=== PATIENT | male | born 1950 | race Two or more races ===

== ENCOUNTER → 2018-02-16 16:40 | Outpatient (CLI) | payer MEDICARE, BC, SELFPAY | PROVIDERS: Visit Provider Nurse Practitioner Adult Health | DX: N40.0 Benign prostatic hyperplasia without lower urinary tract symptoms (principal); Z12.5 Encounter for screening for malignant neoplasm of prostate | CPT/HCPCS: 36415; 84153; G0103 ==

== ENCOUNTER → 2019-04-01 16:33 | Outpatient (CLI) | payer MEDICARE, BC, SELFPAY | PROVIDERS: Referring Provider Urology; Visit Provider Urology | DX: Z12.5 Encounter for screening for malignant neoplasm of prostate (principal) | CPT/HCPCS: 36415; 84153; G0103 ==

== ENCOUNTER → 2022-02-12 | Outpatient (CLI) | payer MEDICARE, BC, SELFPAY ==
[2022-02-12 17:44] LABS: PSA,Total - Annual Screen 4.21 ng/mL (0.00-4.00)
== END | disposition home or self-care (01) ==
LOC: LAB 16:57
PROVIDERS: Referring Provider Urology; Visit Provider Urology
DX: Z12.5 Encounter for screening for malignant neoplasm of prostate (principal)
CPT/HCPCS: 36415; 84153; G0103

== ENCOUNTER → 2025-04-12 | Outpatient (CLI) | payer MEDICARE, BC, SELFPAY ==
[2025-04-13 15:08] LABS: PSA, Free 0.36 ng/mL; PSA, Free % 8.9 % (.); PSA, Total Ultrasensitive 4.060 ng/mL (0.000-4.000)
== END | disposition home or self-care (01) ==
LOC: LAB 11:34
PROVIDERS: Referring Provider Urology; Visit Provider Urology
DX: R97.20 Elevated prostate specific antigen [PSA] (principal)
CPT/HCPCS: 36415; 84153; 84154

== ENCOUNTER → 2025-04-25 | Outpatient (CLI) | payer MEDICARE, BC, SELFPAY ==
--- NOTE | 2025-04-25 10:53 | MRI_ITS ---
EXAM: PELVIS W/WO CONTRAST 04/25/2025 CLINICAL HISTORY: ELEVATED PSA. Prior laser surgery on the prostate with no prior history of cancer. TECHNIQUE: Procedure Code: [id number] Modality: MR Procedure: PELVIS W/WO CONTRAST Multiplanar and multisequence images were obtained intravenous gadolinium contrast. CONTRAST: Clariscan VOLUME: 20 mL FINDINGS: PSA: 4 4.06 Prostate size: 2.5 x 3.1 x 4.2 cm, estimated volume 17.59 mL. Per the above provided PSA, PSA density is 0.227 ng/mL. Transition zone: PI-RADS 2 findings. *T2 score: 2; mostly encapsulated nodule or a homogeneous circumscribed nodule without encapsulation, or a homogeneous mildly hypointense area between nodules. *DWI score: 1; no abnormality on ADC or high b-value DWI. *DCE: Negative. *Overall PI-RADS: PI-RADS 2. *Extracapsular extension:No gross extracapsular extension. Peripheral Zone: *Lesion 1: Within the left anterior and posterior peripheral zones in the midportion of the gland, there is a 18 x 7 x 17 mm T2 hypoechoic lesion with early enhancement and intermediate high signal on DWI. This demonstrates a broad contact with the capsule without clear evidence of extraprostatic involvement. (Axial T2 image 15, ADC map image 13). *T2 score: 5; circumscribed, homogeneous, moderate hypointensity, and >1.5 cm in greatest dimension or definite extraprostatic extension/invasive behavior. *DWI score: 4; focal, marked hypointensity on ADC and marked hyperintensity on high b-value DWI; <1.5 cm. *DCE: Positive. *Overall PI-RADS: PI-RADS 5. *Extracapsular extension:No gross extracapsular extension. Neurovascular bundles: Unremarkable. Seminal vesicles: Unremarkable. Bladder: Indeterminate heterogeneous well-circumscribed T2 hypointense, enhancing nodule in the bladder measuring 9.5 x 7.9 x 7.5 cm. Given that there are postsurgical changes in the superior prostate, this could reflect residual hyperplastic nodule from BPH. The remainder of the bladder is normal.. Lymph nodes: Unremarkable. Bones: No destructive or frankly suspicious bony lesions identified on nondedicated evaluation. Other: None. MRI/Pelvis W/WO Contrast IMPRESSION: 18 mm lesion within the anterior and posterior left peripheral zone midgland wi th broad capsular contact but no extracapsular invasion or involvement of the neurovascular bundle. PI-RADS 5. Small 9.5 mm nodule in the bladder following signal characteristics of a BPH no dule and likely reflective of residual tissue with postsurgical changes seen in the superior prostate gland Reading Location: [id number]
== END | disposition home or self-care (01) ==
PROVIDERS: PCP Pediatrics; Referring Provider Urology; Visit Provider Urology
DX: R97.20 Elevated prostate specific antigen [PSA] (principal)
CPT/HCPCS: 72197; A9575; A4216

== ENCOUNTER → 2025-05-31 | Outpatient (CLI) | payer MEDICARE, BC, SELFPAY ==
--- NOTE | 2025-05-31 13:58 | EKG12_ITS ---
Test Reason : PREOP Blood Pressure : */* mmHG Vent. Rate : 54 BPM Atrial Rate : 54 BPM P-R Int : 164 ms QRS Dur : 96 ms QT Int : 444 ms P-R-T Axes : 43 74 57 degrees QTcB Int : 421 ms Sinus bradycardia Otherwise normal ECG Confirmed by JOSE GUTHRIE, KRISTAL ([id number]), assistant editor KRISTOPHER DAN ([id number]) on 06/01/2025 9:02:59 AM Referred By: Bismark Anton Confirmed By: KRISTAL GARCIA MD
[2025-05-31 15:02] LABS: Hematocrit 40.5 % (40-54); Hemoglobin 14.3 g/dL (13.0-16.5); Mean Corp Hgb Conc 35.3 g/dL (32-36); Mean Corpuscular Volume 93.1 fL (80-94); Mean Platelet Vol. 9.8 fl (6.2-12.0); Platelet Count 221 K/mm3 (150-450); RBC Distribution Width CV 12.8 % (11.6-14.6); RBC Distribution Width SD 43.9 fl (35.1-43.9); Red Blood Count 4.35 M/mm3 (4.6-6.2); White Blood Count 6.9 K/mm3 (4.4-11.0)
[2025-05-31 15:45] LABS: Anion Gap 10 (5-15); BUN 11 mg/dL (4-19); BUN/Creat Ratio 14.2 RATIO (10-20); Calcium,Total 9.1 mg/dL (7.6-11.0); Carbon Dioxide 24.9 mmol/L (21.0-32.0); Chloride 104 mmol/L (98-108); Glucose 89 mg/dL (70-99); Potassium 4.2 mmol/L (3.3-5.1)
== END | disposition home or self-care (01) ==
PROVIDERS: PCP Pediatrics; Referring Provider Urology; Visit Provider Urology
DX: Z01.810 Encounter for preprocedural cardiovascular examination (principal)
CPT/HCPCS: 36415; 80048; 85027; 93005

== ENCOUNTER → 2025-06-10 | Outpatient (CLI) | payer MEDICARE, BC, SELFPAY ==
--- NOTE | 2025-06-10 10:30 | PROSBIL_PTH ---
PATIENT: EZE ANTON LOC: [facility] U#:[id number] AGE/SX: 74/M ROOM: RE06/10/[address]: Dr. Bismark Anton MD : [id number] BED: DIS: 06/10/2025 SPEC #: [id number] RECD: 06/13/25 15:02 STATUS: BELINDA ANAND #: [id number] LISA: 06/10/25 10:[address]: Bismark Anton DEPT: SURGICAL PATHOLOGY RECD BY: Yoli Camarena ENTERED: 06/14/25 10:16 SP TYPE: PROST BX PANTERA DR: Dr. Leelee Martinez MD Tissues: A - PROSTATE RIGHT B - PROSTATE RIGHT C - PROSTATE RIGHT D - PROSTATE LEFT E - PROSTATE LEFT F - PROSTATE LEFT Procedures: PROSTATE BX Immunohistochemical Stains HEADER OPERATION: Cystoscopy, ultrasound guided prostate biopsy PRE-OP DIAGNOSIS: Benign prostatic hyperplasia with lower urinary tract symptoms, encounter for screening for malignant neoplasm of prostate TISSUE SUBMITTED: A - Right base, B - Right mid, C - Right apex, D - Left base, E- Left mid, F- Left apex MICROSCOPIC DIAGNOSIS A. Prostate, right, base, biopsy: - High grade prostatic intraepithelial neoplasia, focal acute inflammation. - PIN4 IHC supports the histologic impression. B. Prostate, right, mid, biopsy: - High grade prostatic intraepithelial neoplasia, focal acute inflammation. - PIN4 IHC supports the histologic impression. C. Prostate, right, apex, biopsy: - Benign prostate with acute inflammation. D. Prostate, left, base, biopsy: - Adenocarcinoma Macon score 3+3=6, involving one of two cores and 40% of the specimen. E. Prostate, left, mid, biopsy: - Adenocarcinoma Macon score 3+3=6, involving one of two cores and 16% of the specimen. F. Prostate, left, apex, biopsy: - Benign prostate tissue. MICROSCOPIC DESCRIPTION Slides are reviewed. All matched controls reacted appropriately. These tests were developed and their performance characteristics determined by [facility]. They may not have been cleared or approved by the [place] Food and Drug Administration. The FDA has determined that such clearance or approval is not necessary. The above immunohistochemical markers and/or special?stains have been reviewed by the Pathologist. GROSS DESCRIPTION Received in prefer/formalin, in 6 containers, labeled with the patient's name and date of . Designated as:A. Right prostate base are 2 saba tissue cores, 1.1 cm and 1.3 cm in length by 0.1 cm in diameter. Entirely submitted in 1 cassette. B. Right prostate mid are 2 fragmented saba tissue cores, 1.3 cm and 1.4 cm in length by 0.1 cm in diameter. Entirely submitted in 1 cassette. C. Right prostate apex are 2 fragmented saba tissue cores, 1.2 cm and 1.5 cm in length by 0.1 cm in diameter. Entirely submitted in 1 cassette. D. Left prostate base are 2 fragmented saba tissue cores, 1.4 cm and 1.8 cm in length by 0.1 cm in diameter. Entirely submitted in 1 cassette. E. Left prostate mid are 2 fragmented saba tissue cores, 1.1 cm and 1.4 cm in length by 0.1 cm in diameter. Entirely submitted in 1 cassette. F. Left prostate apex are 2 saba tissue cores, 0.9 cm and 1.3 cm in length by 0.1 cm in diameter. Entirely submitted in 1 cassette. FL 06/14/2025 CPT:[id number]
== END | disposition home or self-care (01) ==
LOC: LABSPEC 06-14 12:23
PROVIDERS: PCP Pediatrics; Referring Provider Urology; Visit Provider Urology
DX: C61 Malignant neoplasm of prostate (principal); N40.1 Benign prostatic hyperplasia with lower urinary tract symptoms
CPT/HCPCS: 88305; 88342; G0416